=== PATIENT | male | born 2000 ===

== ENCOUNTER 2022-05-14 18:59 | Emergency (ER) | payer OTHER, SELFPAY ==
--- NOTE | ~2022-05-14 | XR_ITS ---
EXAMINATION: XR chest 1V portable Exam Date/Time: 05/14/2022 19:25 [employer] HISTORY: cough, fever Comparison: None available. RESULT: Lines, tubes, and devices: None. Lungs and pleura: Clear. Cardiomediastinal silhouette: Normal. Other: No acute osseous or upper abdominal finding. IMPRESSION: No acute cardiopulmonary process. Reviewed, dictated and finalized at location [facility] [employer]
[2022-05-14 19:17] VITALS: BP 133/98; PULSE 112; RESP 15; TEMP 39.1; O2SAT 99
--- NOTE | 2022-05-14 19:33 | ED.GENADULT ---
HPI - General Adult General Chief complaint: Upper Respiratory Infection Stated complaint: cough, fever Time Seen by Provider: 05/14/22 19:13 History of Present Illness HPI narrative: 21-year-old male presents to the emergency department for evaluation of fever. Patient states the last few days he has had fever and has been treating with Tylenol intermittently. Patient denies any associated chest pain or shortness of breath. Patient he has had increased cough. Patient denies any known sick contacts. Patient states he was vaccinated to COVID. Patient denies any other significant past medical history. Related Data Allergies Allergy/AdvReac Type Severity Reaction Status Date / Time No Known Allergies Allergy Verified 05/14/22 20:00 Review of Systems Review of Systems: CONSTITUTIONAL: See HPI EYES: Denies visual changes, redness, or discharge. ENT: Denies rhinorrhea, congestion, sore throat, or otalgia. CARDIOVASCULAR: Denies chest pain, palpitations, or edema. RESPIRATORY: See HPI GASTROINTESTINAL: Denies abdominal pain, nausea, vomiting, or diarrhea. GENITOURINARY: Denies dysuria or hematuria. SKIN: Denies rash or itching. MUSCULOSKELETAL: Denies back pain, joint pain, or myalgia. NEUROLOGIC: Denies headache, numbness, or weakness. Exam Narrative: APPEARANCE: Well appearing, no pain, no distress, well-nourished. HEAD: normocephalic, atraumatic. EYES: PERRLA/EOMI, conjunctivae clear. NOSE: Normal no drainage EARS:TMS clear with good light reflex. THROAT: Pharynx clear, no exudate. NECK: Supple. No adenopathy, no masses. RESPIRATORY: Airway patent, respirations nonlabored. Clear to auscultation bilaterally, no rales, rhonchi, wheezing. CARDIOVASCULAR: Regular rate and rhythm without murmurs rubs or gallops. ABDOMINAL: Soft, nontender, nondistended, normal bowel sounds MUSCULOSKELETAL: Moves all extremities. Strength/ROM intact, No edema, No calf tenderness. NEURO: Alert. Cranial nerves II through XII intact. Grossly intact SKIN: Warm, dry. Normal Color Course Course Emergency Course: Patient's fever did improve with treatment. Patient did test positive for influenza A. Patient was updated the results of the work-up. All questions and concerns were addressed. Patient was comfortable with the plan for discharge and close follow-up. Vital Signs Vital signs: Vital Signs Temperature 102.4 F H 05/14/22 19:17 Pulse Rate 112 H 05/14/22 19:17 Respiratory Rate 15 05/14/22 19:17 Blood Pressure 133/98 H 05/14/22 19:17 Pulse Oximetry 99 05/14/22 19:17 Oxygen Delivery Room Air 05/14/22 19:17 Temperature 99.9 F H 05/14/22 20:36 Pulse Rate 113 H 05/14/22 20:36 Respiratory Rate 20 05/14/22 20:36 Blood Pressure 133/98 H 05/14/22 19:17 Pulse Oximetry 99 05/14/22 20:36 Oxygen Delivery Room Air 05/14/22 19:22 Medical Decision Making Vital Signs Vital Signs: Vital Signs Temperature 102.4 F H 05/14/22 19:17 Pulse Rate 112 H 05/14/22 19:17 Respiratory Rate 15 05/14/22 19:17 Blood Pressure 133/98 H 05/14/22 19:17 Pulse Oximetry 99 05/14/22 19:17 Oxygen Delivery Room Air 05/14/22 19:17 Temperature 99.9 F H 05/14/22 20:36 Pulse Rate 113 H 05/14/22 20:36 Respiratory Rate 20 05/14/22 20:36 Blood Pressure 133/98 H 05/14/22 19:17 Pulse Oximetry 99 05/14/22 20:36 Oxygen Delivery Room Air 05/14/22 19:22 Lab Data Lab results reviewed: Yes I reviewed the patient's lab results. Labs: Lab Results 05/14/22 Range/Units 19:29 Influenza A (RT-PCR) Positive (Negative) Influenza B (RT-PCR) Negative (Negative) SARS-CoV-2 RNA (RT-PCR) Negative Discharge Plan Discharge Clinical Impression: Influenza A Patient Disposition: Home, Self-Care Condition: Stable Instructions: Antibiotic Form, Influenza (ED) Additional Instructions: Tylenol and ibuprofen for fever and body aches. Drink plenty of fluids. Have close follow-up w
[2022-05-14 19:48] VITALS: PULSE 104; RESP 16; O2SAT 100
[2022-05-14] MEDS: IBUPROFEN 400 MG TABLET 800 MG PO (20:01)
[2022-05-14] MEDS: ACETAMINOPHEN 500 MG TABLET 1000 MG PO (20:02)
[2022-05-14 20:09] LABS: Influenza A QL RT-PCR Positive (Negative); Influenza B QL RT-PCR Negative (Negative); SARS-CoV-2 RNA PCR Negative
[2022-05-14 20:36] VITALS: PULSE 113; RESP 20; TEMP 37.7; O2SAT 99
== END 2022-05-14 20:37 | disposition home or self-care (01) ==
PROVIDERS: Emergency Provider Emergency Medicine
DX: J10.1 Influenza due to other identified influenza virus with other respiratory manifestations (principal); Z20.822 Contact with and (suspected) exposure to COVID-19
CPT/HCPCS: 71045; 87636; 99283; A9270

== ENCOUNTER 2022-05-17 15:15 | Emergency (ER) | payer OTHER, SELFPAY ==
[2022-05-17 15:50] VITALS: BP 128/89; PULSE 88; RESP 16; TEMP 36.9; O2SAT 100
--- NOTE | 2022-05-17 18:02 | ED.GENADULT ---
HPI - General Adult General Chief complaint: Unspecified Stated complaint: flu Time Seen by Provider: 05/17/22 17:32 History of Present Illness HPI narrative: 21-year-old male here for evaluation of diarrhea over the past 3 days. Reports 5-6 episodes of loose watery stools. Has not attempted any medicine for diarrhea. No blood in his stools, abdominal pain, fevers, weakness. Patient was diagnosed with flu a several days ago, states that his upper respiratory infectious symptoms have improved but ever since taking the cold and flu medicine he has developed diarrhea. He has been eating a bland diet with rice and small sips of fluid. Related Data Allergies Allergy/AdvReac Type Severity Reaction Status Date / Time No Known Allergies Allergy Verified 05/14/22 20:00 Review of Systems Review of Systems: Gen.: Denies fevers or chills Eyes: Denies eye pain or visual change ENT: Denies congestion Respiratory: Denies shortness of breath or cough CV: Denies chest pain or palpitations GI: Reports diarrhea. Denies abdominal pain nausea, emesis denies burning, urgency, frequency or hematuria Musculoskeletal: Denies back pain or muscle pain Neuro: Denies numbness, tingling, weakness or focal weakness Skin: Denies rash Except as documented, all other systems reviewed and negative Exam Narrative: APPEARANCE: Well appearing, no pain in distress, well-nourished. Head: Normocephalic and atraumatic. EYES: PERRLA/EOMI, conjunctivae clear NOSE: No nasal drainage EARS: External ear normal in appearance THROAT: Oropharynx is clear. Mucous membranes are moist. NECK: Supple. No adenopathy, no masses. RESPIRATORY: Airway patent, respirations nonlabored. Clear to auscultation bilaterally, no rales, rhonchi, wheezing. CARDIOVASCULAR: Regular rate and rhythm without murmurs, rubs, or gallops. ABDOMINAL: Normoactive bowel sounds. Soft, nontender, nondistended. No rebound tenderness or guarding. MUSCULOSKELETAL: Extremities are warm and well-perfused. Moves all extremities well. No edema. NEURO: Normal speech. No focal neurologic deficits. SKIN: Skin is warm and dry. No rashes. PSYCHIATRIC: Normal affect/mood. Course Vital Signs Vital signs: Vital Signs Temperature 98.4 F 05/17/22 15:50 Pulse Rate 88 05/17/22 15:50 Respiratory Rate 16 12/07/22 15:50 Blood Pressure 128/89 05/17/22 15:50 Pulse Oximetry 100 05/17/22 15:50 Oxygen Delivery Room Air 05/17/22 15:50 Temperature 98.4 F 05/17/22 15:50 Pulse Rate 88 05/17/22 15:50 Respiratory Rate 16 05/17/22 15:50 Blood Pressure 128/89 05/17/22 15:50 Pulse Oximetry 100 05/17/22 15:50 Oxygen Delivery Room Air 05/17/22 15:50 Medical Decision Making MDM Narrative Medical decision making narrative: 21-year-old male here for evaluation of loose, nonbloody stools over the past several days. He is nontoxic-appearing and has normal vital signs, no abdominal pain or tenderness on exam. This is likely a sequela of influenza that he was diagnosed with several days ago. He will be discharged home to follow-up with his primary care provider, he was given Imodium for symptom relief. He was given return precautions and he voiced understanding. Vital Signs Vital Signs: Vital Signs Temperature 98.4 F 05/17/22 15:50 Pulse Rate 88 05/17/22 15:50 Respiratory Rate 16 05/17/22 15:50 Blood Pressure 128/89 05/17/22 15:50 Pulse Oximetry 100 05/17/22 15:50 Oxygen Delivery Room Air 05/17/22 15:50 Temperature 98.4 F 05/17/22 15:50 Pulse Rate 88 05/17/22 15:50 Respiratory Rate 16 05/17/22 15:50 Blood Pressure 128/89 05/17/22 15:50 Pulse Oximetry 100 05/17/22 15:50 Oxygen Delivery Room Air 05/17/22 15:50 Discharge Plan Discharge Clinical Impression: Influenza A Patient Disposition: Home, Self-Care Condition: Stable Instructions: Antibiotic Form, Acute Diarrhea (ED) Additional Instructions: Your diarrhea is
== END 2022-05-17 18:15 | disposition home or self-care (01) ==
LOC: ANHED 18:01
PROVIDERS: Emergency Provider Physician Assistant
DX: J10.1 Influenza due to other identified influenza virus with other respiratory manifestations (principal)
CPT/HCPCS: 99283

== ENCOUNTER 2022-06-08 20:39 | Emergency (ER) | payer OTHER, SELFPAY ==
[2022-06-08 20:46] VITALS: BP 128/88; PULSE 89; RESP 16; TEMP 36.6; O2SAT 98
[2022-06-08 21:02] LABS: Basophils Percent Auto 0.4 % (0.2-1.2); Eosinophils Percent Auto 0.1 % (0-4.4); Hematocrit 46.3 % (42.0-52.0); Hemoglobin 15.4 g/dL (14.0-18.0); Immature Granulocyte Absolute 0.04 K/mm3 (0.00-0.031); Immature Granulocyte Percent A 0.4 % (0-0.5); Lymphocytes Absolute Auto 1.96 K/mm3 (0.9-3.2); Lymphocytes Percent Auto 17.9 % (18.3-44.2); Mean Corpuscular HGB Conc 33.3 g/dl (32-36); Mean Corpuscular Hemoglobin 28.9 pg (26-34); Mean Corpuscular Volume 86.9 fl (80-100); Mean Platelet Volume 11.1 fl (7.4-10.4); Monocytes Absolute Auto 0.8 K/mm3 (0.1-0.6); Monocytes Percent Auto 7.4 % (2.6-8.5); Neutrophils Absolute Auto 8.1 K/mm3 (1.3-6.7); Neutrophils Percent Auto 73.8 % (45.5-73.1); Platelet Count Result 253 k/mm3 (150-375); Red Blood Count 5.33 M/mm3 (4.6-6.20); Red Cell Distribution Width 13.1 % (11.5-14.5); White Blood Count 10.9 K/mm3 (4.5-10.0)
[2022-06-08 21:16] LABS: Alanine Aminotransferase 35 U/L (6-50); Albumin Level 5.1 g/dL (3.5-5.1); Alkaline Phosphatase 105 U/L (38-126); Anion Gap 11 mmol/L (8-16); Aspartate Amino Transferase 29 U/L (17-59); Blood Urea Nitrogen 14 mg/dL (9-20); Calcium 9.2 mg/dL (8.4-10.2); Carbon Dioxide 23 mmol/L (22-30); Chloride 108 mmol/L (98-107); Estimated CRCL calculation 103 ml/min; Estimated Glomerular Filt Rate > 60; Glucose 113 mg/dL (65-110); Lipase 65 U/L (23-300); Potassium 3.9 mmol/L (3.4-5.0); Sodium 142 mmol/L (137-145)
[2022-06-08 21:28] LABS: Add Urine Microscopic? YES; Appearance Urine Clear (Clear); Bilirubin Urine Negative (Negative); Blood Urine 1+ (Negative); Color Urine Yellow (Yellow); Glucose Urine UA Negative (Negative); Ketones Urine Negative (Negative); Leukocyte Esterase Ur Negative LEU/UL (Negative); Nitrate Urine Negative (Negative); Protein Urine Trace mg/dL (Negative); Specific Grav Ur >= 1.030 (1.001-1.035); Urobilinogen Urine 0.2 mg/dL (<2.0); pH Urine 6.5 (5.0-9.0)
[2022-06-08 21:34] LABS: Bacteria Urine Trace /hpf; Mucus Urine Heavy /lpf; WBC Urine 0-3 /hpf
--- NOTE | 2022-06-08 21:44 | ED.NAVMDI ---
HPI - Nausea/Vomiting/Diarrhea General Chief complaint: Nausea/Vomiting/Diarrhea Stated complaint: N/V Time Seen by Provider: 06/08/22 21:11 History of Present Illness HPI Narrative: 21-year-old male no medical problems presents emergency room for evaluation of vomiting since last night. He states yesterday he ingested an entire bottle of [place]ana Ayaan, and then shortly following that began experiencing multiple episodes of nonbloody nonbilious vomiting. Patient states that he has never drink alcohol before. Also endorses body aches, headache and dry mouth. Related Data Allergies Allergy/AdvReac Type Severity Reaction Status Date / Time No Known Allergies Allergy Verified 06/08/22 22:18 Review of Systems Review of Systems: CONSTITUTIONAL: Denies fever, chills, or sweats. EYES: Denies visual changes, redness, or discharge. ENT: Denies rhinorrhea, congestion, sore throat, or otalgia. CARDIOVASCULAR: Denies chest pain, palpitations, or edema. RESPIRATORY: Denies cough or dyspnea. GASTROINTESTINAL: Reports nausea and vomiting GENITOURINARY: Denies dysuria or hematuria. SKIN: Denies rash or itching. MUSCULOSKELETAL: Denies back pain, joint pain, or myalgia. NEUROLOGIC: Denies headache, numbness, dizziness, or weakness. PSYCHIATRIC: Denies anxiety or depression. Exam Narrative: GENERAL: Well-appearing, well-nourished, no physical limitations, and in no acute distress. HEAD: Normocephalic, atraumatic. EYES: Conjunctivae normal, PERRLA and EOMI. ENT: External nose normal, Nares clear, no rhinorrhea or epistaxis. Mucous membranes dry. CHEST: Clear to auscultation. No respiratory distress. No wheezes rales or rhonchi. No tenderness. HEART: Regular rate and rhythm. No murmur heard. Normal peripheral pulses. ABDOMEN: Soft, nontender, nondistended, normal active bowel sounds. BACK: No CVA tenderness; No cervical/thoracic/lumbar tenderness, step-offs, bony abnormality; FROM EXTREMITIES: Normal range of motion. No edema. No clubbing or cyanosis SKIN: Warm, dry, no rash. No noted wounds NEURO: No focal deficits. Alert and oriented x3. MAEW. CN's II-XI intact bilaterally, normal gait PSYCH: Cooperative. Normal mood and affect. Course Vital Signs Vital signs: Vital Signs Temperature 36.6 C 06/08/22 20:46 Pulse Rate 89 06/08/22 20:46 Respiratory Rate 16 06/08/22 20:46 Blood Pressure 128/88 06/08/22 20:46 Pulse Oximetry 98 06/08/22 20:46 Oxygen Delivery Room Air 06/08/22 20:46 Temperature 36.6 C 06/08/22 20:46 Pulse Rate 80 06/08/22 22:46 Respiratory Rate 16 06/08/22 22:46 Blood Pressure 131/84 06/08/22 22:46 Pulse Oximetry 100 06/08/22 22:46 Oxygen Delivery Room Air 06/08/22 20:46 MDM - Nausea/Vomiting/Diarrhea Lab Data 06/08/22 20:55 06/08/22 20:55 Labs: Lab Results 06/08/22 06/08/22 06/08/22 Range/Units 20:55 20:55 21:07 WBC 10.9 H (4.5-10.0) K/mm3 RBC 5.33 (4.6-6.20) M/mm3 Hgb 15.4 (14.0-18.0) g/dL Hct 46.3 (42.0-52.0) % MCV 86.9 (80-100) fl MCH 28.9 (26-34) pg MCHC 33.3 (32-36) g/dl RDW 13.1 (11.5-14.5) % Plt Count 253 (150-375) k/mm3 MPV 11.1 H (7.4-10.4) fl Immature Gran % (Auto) 0.4 (0-0.5) % Neut % (Auto) 73.8 H (45.5-73.1) % Lymph % (Auto) 17.9 L (18.3-44.2) % [place] % (Auto) 7.4 (2.6-8.5) % Eos % (Auto) 0.1 (0-4.4) % Baso % (Auto) 0.4 (0.2-1.2) % Lymph # (Auto) 1.96 (0.9-3.2) K/mm3 [place] # (Auto) 0.8 H (0.1-0.6) K/mm3 Eos # (Auto) 0.0 (0-0.3) K/mm3 Baso # (Auto) 0.0 (0.0-0.1) K/mm3 Abs Immat Gran (auto) 0.04 H (0.00-0.031) K/mm3 Absolute Neuts (auto) 8.1 H (1.3-6.7) K/mm3 Absolute Nucleated RBC 0.0 (0.0-0.012) K/mm3 Nucleated RBC % 0.0 (0.0-0.2) % Sodium 142 (137-145) mmol/L Potassium 3.9 (3.4-5.0) mmol/L Chloride 108 H (98-107) mmol/L Carbon Dioxide 23 (22-30) mmol/L Anion Gap 11 (8-16) m
[2022-06-08] MEDS: SODIUM CHLORIDE 0.9% IV 1,000 ML 999 ML IV CONT (21:51)
[2022-06-08] MEDS: ONDANSETRON INJ 4 MG/2 ML VIAL IV PUSH (21:52)
--- NOTE | 2022-06-08 21:55 | PC.NURSE ---
Pt c/o nausea and vomiting that started yesterday. He denies abdominal pain or diarrhea. Reports that he drank a lot of alcohol yesterday.
[2022-06-08 22:04] VITALS: BP 127/86; PULSE 77
[2022-06-08 22:05] VITALS: BP 126/107; PULSE 79
[2022-06-08 22:06] VITALS: BP 129/70; PULSE 104
--- NOTE | 2022-06-08 22:28 | PC.NURSE ---
Pt given water to drink. His nausea has resolved and he is tolerating PO challenge.
[2022-06-08 22:46] VITALS: BP 131/84; PULSE 80; RESP 16; O2SAT 100
== END 2022-06-08 23:05 | disposition home or self-care (01) ==
PROVIDERS: General Practice; Emergency Provider Nurse Practitioner Family
DX: R11.10 Vomiting, unspecified (principal)
CPT/HCPCS: 36415; 80053; 81001; 83690; 85025; 96361; 96374; 99284; J2405; J7030